=== PATIENT | male | born 1940 | race Caucasian/White ===

== ENCOUNTER 2025-01-16 10:33 | Outpatient (AMB) | payer MEDICARE, OTHER, SELFPAY ==
--- NOTE | 2025-01-16 10:46 | MHC.OFFVIS ---
Intake Visit Reasons: 6M AD HPI Comments Details: 85 years old right-handed man with dementia with behavioral symptoms of anxiety, depression, and paranoid delusions. He is presenting with issues related to medication management for depression. He has been taking several medications, including bupropion for depression and other agents like palantirine and mammotin, with noted effects on mood and sleep. It was noted that his baseline mood remains stable although he reports persistent feelings of depression. He denies hallucinations or significant mood fluctuations, with sleep disturbances part of the discussion. The existing therapeutic regimen involving escitalopram is to be adjusted from 10 mg to 20 mg, reflecting the need to better manage depressive symptoms. The patient's current adherence and past prescription history were also examined during the visit. Review of Systems Narrative - Constitutional: Reports excessive sleep, approximately 18 hours per day. - Psychiatric: Reports depressive mood; denies hallucinations. Physical Exam Neuro Other: Mental Status: Alert and oriented to person, place, and time. Normal attention. Normal spontaneous speech, fluency, and comprehension. Cranial Nerves: CN II: Visual zamora full to confrontation, visual acuity intact. CN III, IV, : Pupils equal, round, reactive to light and accommodation. Extraocular movements are normal. CN V: Facial sensation is normal. CN VII: Facial movements symmetrical. CN VIII: Hearing intact to bedside conversation is normal. CN IX, X: Palate elevates symmetrically. CN XI: Shoulder shrug and head turn symmetrical. CN XII: Tongue midline without atrophy or fasciculations. Extrapyramidal: Full facial expressions and blinking. No rigidity. Movements are appropriate with no tremor or abnormality. Speech: Normal; no dysarthria or tremor. 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 Continue galantamine 16 mg extended release 1 a day with breakfast 2. Continue memantine 10 mg twice a day 3. Continue bupropion extended release 150 mg 1 with breakfast 4. Increase escitalopram to 20 mg 1 a day at bedtime 5. Continue quetiapine 25 mg 1 at bedtime Medications: New galantamine ER administer with breakfast 16 mg PO QAM 90 caps 1RF escitalopram oxalate 20 mg PO DAILY 90 tabs 1RF memantine (Namenda) 10 mg PO BID 180 tabs 1RF bupropion HCl XL (Wellbutrin XL) 150 mg PO QAM 90 tabs 1RF quetiapine 25 mg PO BEDTIME 90 tabs 1RF Coding Level of Care Code Est Pt Level 3 (27174) Diagnoses Alzheimer disease G30.9; F02.80
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
== END 2025-01-16 10:56 | disposition home or self-care (01) ==
LOC: HO.HSM 10:33
PROVIDERS: Family Provider Internal Medicine; PCP Internal Medicine; Visit Provider Psychiatry & Neurology Neurology
DX: G30.9 Alzheimer's disease, unspecified (principal); F02.80 Dementia in other diseases classified elsewhere, unspecified severity, without behavioral disturbance, psychotic disturbance, mood disturbance, and anxiety
CPT/HCPCS: 99213

== ENCOUNTER → 2025-01-16 10:33 | Outpatient (BNVA) | payer MEDICARE, OTHER, SELFPAY | PROVIDERS: Family Provider Internal Medicine; PCP Internal Medicine; Visit Provider Psychiatry & Neurology Neurology | DX: G30.9 Alzheimer's disease, unspecified (principal); F02.80 Dementia in other diseases classified elsewhere, unspecified severity, without behavioral disturbance, psychotic disturbance, mood disturbance, and anxiety | CPT/HCPCS: 99212 ==